=== PATIENT | female | born 1945 | race Caucasian/White ===

== ENCOUNTER → 2016-04-17 | Outpatient (CLI) | payer SELFPAY ==
--- NOTE | 2016-04-18 03:10 | KCIC ---
PROCEDURE Coronary artery calcium score dated04/17/2016. No comparison available. HISTORY Calcium screening. TECHNIQUE High resolution, computed tomography of the heart was performed with ECG gating and suspended respiration using the Siemens HeartView CT. No contrast material was administered. Post processing was performed on the 3-D computer workstation using diastolic phase images to measure the amount of coronary vascular calcium. Scoring was performed utilizing the Agaston Method.Exposure: One or more of the following individualized dose reduction techniques were utilized for this exam: 1. Automated exposure control. 2. Adjustment of the mA and/or kV according to patient size. 3. Use of iterative reconstruction technique. COMPARISON None FINDINGS Thorax:[Mildly prominent linear markings at the periphery of both lung bases, nonspecific. Mild bronchiectasis. No consolidation. Mild ectasia of the ascending thoracic aorta measuring 3.6 centimeters transverse dimension. Calcified subcarinal lymph node. Coronary arteries:CALCIUM IS PRESENT TOTAL AGASTON CALCIUM SCORE =77.3.. Calcium is detected in the coronary circulation and confirms the presence of atherosclerotic plaque. Calcium is predominately within the proximal LAD. The presence of coronary calcium confirms the presence of atherosclerotic plaque. The greater the amount of coronary calcium, the greater the likelihood of stenotic or occlusive coronary artery disease. However, there is not a one-to-one relationship, and findings may not be site specific. The total amount of calcium correlates best with the total amount of atherosclerotic plaque, although the true "plaque burden" can be underestimated by calcium score. MODERATE coronary atherosclerosis is present. Individuals in this score range typically have mild to moderate luminal irregularity at coronary angiography. There is an INTERMEDIATE RISK of cardiovascular events based on this test. IMPRESSION 1. Coronary atherosclerosis is present, small to moderate amount. 2. Intermediate risk of cardiovascular event. 3. Prominent interstitial markings at both lung bases, nonspecific. Consider mild fibrosis or chronic scarring. RECOMMENDATIONS 1. Further evaluation and prevention strategies should be based on global assessment of cardiovascular risk factors in addition to the results of this test. 2. Aggressive reduction of modifiable cardiovascular risk factors should be considered. Additional supporting information concerning the findings and recommendation contained within this report can be found in the consensus statements on coronary vascular calcium published by the [place] [employer] and [place] [employer] 5 Conference (Circulation 1996; 94: 2786-4249; J Am Ana Cardiol 2000; 36: 326-340 and Circulation 2000; 101: 111-116). Electronically signed by: Mono LauApr 18, 2016 03:09:14)
== END | disposition home or self-care (01) ==
LOC: KCIC CT 15:39
PROVIDERS: ATTEND General Practice
DX: I10 Essential (primary) hypertension (principal); I25.10 Atherosclerotic heart disease of native coronary artery without angina pectoris
CPT/HCPCS: 75571

== ENCOUNTER → 2016-08-11 | Outpatient (CLI) | payer OTHER, MEDICARE ==
[~2016-08-11] MED LIST: AMLO5TAB2 PO; OLME20TA19 PO; OMEP20CA9 PO; REGADENOSON 0.4 MG/5 ML DISP.SYRIN. IV ONE
--- NOTE | 2016-08-11 17:52 | RAD ---
APPROVED REPORT Test Type: Pharmacological Stress Nurse/Tech: Natalya Durham R.N. Test Indications: ecertional dyspnea and fatigue Cardiac History: htn Medications: See Electronic Medical Record Medical History: See Electronic Medical Record Resting ECG: SR Resting Heart Rate: 77 bpm Resting Blood Pressure: 104/70mmHg Pretest Chest Pain: No chest pain Nurse/Tech Notes S1S2, lungs CTA Consent: The procedure was explained to the patient in lay terms. Informed consent was witnessed. Adilson eout was entered into [employer]. History and Stress Test performed by RT Miya (R) (N) Pharm. Details Pharmacologic stress testing was performed using 0.4mg per 5ml of regadenoson given intravenously ove r 7-10 seconds. Stress Symptoms dyspnea, slight queasiness and slight h/a which resolved by the end of recovery time POST EXERCISE Reason for Termination: Infusion complete Max HR: 119 bpm Max Blood Pressure: 124/69mmHg Blood Pressure response to exercise: Normal blood pressure response during stress. Heart Rate response to exercise: wnl Chest Pain: No. Arrhythmia: No. ST Change: No. INTERPRETATION Stress EKG Conclusion: The resting EKG shows a normal sinus rhythm with mild nonspecific ST segment c hanges in the inferior leads. The stress EKG shows further mild ST segment changes in the inferior leads that are suggestive but no t diagnostic for ischemia. Stress EKG shows changes are suggestive but not diagnostic of inferior wall ischemia. Imaging Protocol IMAGE PROTOCOL: Rest Tc-99m/stress Tc-99m 1 day Rest: Stress: Viability: Radiopharm.Tc99m [id number] Sestamibi Dose10.8mCi 34mCi Duration 15min. 10min. Img Date 08/11/2016 08/11/2016 Inj-Img [id number]. 60min. Rest Admin Site:IV - Left AntecubitalAdministrator:RT Miya (Gordon)(N) Stress Admin Site: IV - Left AntecubitalAdministrator: RT Miya (Gordon)(N) STRESS DATA End Diast. Vol.48.0mlAv. Heart Rate86.0bpm End Syst. Vol.9.0mlCO Index BSA0.0L/min Myocardial Mass92.0gEject. Oerrledg80.0% Stress Rates Pk. Fill Rate4.75EDV/secLVtime Pk. Fill 212.08msec Pk. Empty Rate5.77ESV/secLVtime Pk. Gtbdl586.59msec 02/14 Pk. Fill0.64EDV/sec Stress Scores Regional WT0.00Summed WT1.00 Regional WM0.00Summed WM3.00 LV Perfusion The stress scans showed no significant defects. The rest scans showed no significant defects. Nuclear imaging shows no reversible ischemia or infarct. Wall Motion Normal left ventricular systolic function with an ejection fraction of greater than 70%. LV Perf. Quant 17 Seg. SSS0.00 17 Seg. SRS5.00 17 Seg. SDS0.00 Stress Defect Extent (% LAD)0.00Rest Defect Extent (% LAD)0.60Rev. Defect Extent (% LAD)0.00 Stress Defect Extent (% LCX) 0.00Rest Defect Extent (% LCX)22.50Rev. Defect Extent (% LCX)0.00 Stress Defect Extent (% RCA)0.00Rest Defect Extent (% RCA)0.00Rev. Defect Extent (% RCA)0.00 Stress Defect Extent (% CAROLE)0.00Rest Defect Extent (% CAROLE)4.60Rev. Defect Extent (% CAROLE)0.00 Conclusion 1. Mildly abnormal resting EKG with mild changes with exertion that are suggestive but not diagnostic of ischemia. 2. Nuclear imaging shows no reversible ischemia or infarct. 3. Normal left ventricular systolic function with an ejection fraction of greater than 70%. 4. Moderately low to low risk Lexiscan nuclear stress test.
--- NOTE | 2016-08-11 17:59 | CARD ---
APPROVED REPORT EXAM: Two-dimensional and M-mode echocardiogram with Doppler and color Doppler. Other Information Quality : GoodHR: 82bpm Rhythm : NSR INDICATION Increased dyspnea on exertion 2D DIMENSIONS RVDd2.4 (2.9-3.5cm)Left Atrium(2D)3.3 (1.6-4.0cm) IVSd1.0 (0.7-1.1cm)Aortic Root(2D)2.4 (2.0-3.7cm) LVDd4.1 (3.9-5.9cm)LVOT Diameter2.0 (1.8-2.4cm) PWd1.0 (0.7-1.1cm)LVDs2.7 (2.5-4.0cm) FS (%) 34.4 %SV48.6 ml LVEF(%)63.9 (>50%) Aortic Valve LVOT Peak Nelson.100.6cm/s Mitral Valve MV E Fnaphgcs543.2cm/sMV DECEL [id number] MV A Zhtbrsaa966.5cm/sE/A Ratio0.8 MV A [id number] Pulmonary Valve PV Peak Vosabifg110.5cm/s Pulmonary Vein S1 Zyvktard05.9cm/sD2 Pwztqcbv04.8cm/s PVa [id number] LEFT VENTRICLE The left ventricle is normal size. There is normal left ventricular wall thickness. The left ventricu lar systolic function is normal and the ejection fraction is within normal range. The Ejection Fracti on is 60-65%. There is normal LV segmental wall motion. Transmitral Doppler flow pattern is Grade I-a bnormal relaxation pattern. RIGHT VENTRICLE The right ventricle is normal size. There is normal right ventricular wall thickness. The right ventr icular systolic function is normal. ATRIA The left atrium size is normal. The right atrium size is normal. The interatrial septum is intact wit h no evidence for an atrial septal defect or patent foramen ovale as noted on 2-D or Doppler imaging. AORTIC VALVE The aortic valve is mildly sclerotic. The aortic valve is trileaflet. Doppler and Color Flow revealed no significant aortic regurgitation. There is no significant aortic valvular stenosis. MITRAL VALVE Mitral annular calcification is mild. The mitral valve leaflets are thickened. There is no evidence o f mitral valve prolapse. There is no mitral valve stenosis. Doppler and Color Flow revealed mild mitr al regurgitation. TRICUSPID VALVE Doppler and Color Flow revealed mild tricuspid regurgitation. The pulmonary artery systolic pressure is estimated at 29 mmHg. PULMONIC VALVE Doppler and Color Flow revealed no pulmonic valvular regurgitation. There is no pulmonic valvular natalee nosis. GREAT VESSELS The aortic root is normal in size. The ascending aorta is normal in size. The pulmonary artery is nor mal. The IVC is normal in size and collapses >50% with inspiration. PERICARDIAL EFFUSION There is no evidence of significant pericardial effusion. Critical Notification Critical Value: No <Conclusion> The left ventricle is normal size. The left ventricular systolic function is normal and the ejection fraction is within normal range. The Ejection Fraction is 60-65%. There is no significant aortic valvular stenosis. Doppler and Color Flow revealed no significant aortic regurgitation. Doppler and Color Flow revealed mild mitral regurgitation. Doppler and Color Flow revealed mild tricuspid regurgitation. The pulmonary artery systolic pressure is estimated at 29 mmHg.
== END | disposition home or self-care (01) ==
LOC: ECHO 07:22
PROVIDERS: ATTEND Internal Medicine Cardiovascular Disease
DX: I08.1 Rheumatic disorders of both mitral and tricuspid valves (principal); I10 Essential (primary) hypertension; R06.09 Other forms of dyspnea
CPT/HCPCS: 78452; 93017; 93306; 96374; 96375; 96376; A9500; J2785